=== PATIENT | female | born 1960 | race Caucasian/White ===

== ENCOUNTER 2021-11-15 10:41 | Emergency (ER) | payer OTHER ==
[~2021-11-15] VITALS: Ht 167.6 cm; Wt 65.9 kg
[2021-11-15 13:01] VITALS: BP 157/97
[2021-11-15] MEDS ORDERED: oxyCODONE IR 5mg (immed. release) tablet PO ONE (15:40)
[2021-11-15] MEDS ORDERED: ondansetron 4mg rapidly disintigrating tab PO ONE (15:40)
[2021-11-15] MEDS ORDERED: ONDA4TAB12 PO (17:42)
[2021-11-15] MEDS ORDERED: OXYC-658 PO (17:42)
== END 2021-11-15 17:57 | disposition home or self-care (01) ==
LOC: ER 10:41
DX: S42.302A Unspecified fracture of shaft of humerus, left arm, initial encounter for closed fracture (principal); M25.512 Pain in left shoulder; Z79.899 Other long term (current) drug therapy; W01.0XXA Fall on same level from slipping, tripping and stumbling without subsequent striking against object, initial encounter; Y93.89 Activity, other specified; Y92.89 Other specified places as the place of occurrence of the external cause; Y99.8 Other external cause status
CPT/HCPCS: 29105; 73030; 73060; 73080; 73560; 99284